=== PATIENT | female | born 1990 | race African-American/Black ===

== ENCOUNTER 2023-05-25 06:34 | Emergency (ER) | payer SELFPAY ==
[~2023-05-25] VITALS: Ht 170.2 cm; Wt 72.7 kg
[2023-05-25] MEDS ORDERED: SODIUM CHLORIDE 0.9% 1,000 ML IV ONE ×2 (07:15→09:15)
[2023-05-25 08:39] LABS: AMPHET/METH SCREEN,URINE POSITIVE (NEGATIVE); BARBITURATE SCREEN, URINE NEGATIVE (NEGATIVE); BENZODIAZEPINES SCREEN,URINE NEGATIVE (NEGATIVE); CANNABINOID SCREEN,URINE NEGATIVE (NEGATIVE); COCAINE SCREEN,URINE POSITIVE (NEGATIVE); METHADONE SCREEN, URINE NEGATIVE (NEGATIVE); OPIATE SCREEN,URINE NEGATIVE (NEGATIVE); PHENCYCLIDINE SCREEN,URINE NEGATIVE (NEGATIVE)
[2023-05-25 08:55] VITALS: BP 127/95; PULSE 110; RESP 16; TEMP 98.3
== END 2023-05-25 10:59 | disposition left against medical advice (07) ==
LOC: EDBD 06:35 → EMS 06:35
DX: R41.82 Altered mental status, unspecified (principal); F17.210 Nicotine dependence, cigarettes, uncomplicated
CPT/HCPCS: 99283; 96360; 36415; 80307; J7030; G0480

== ENCOUNTER 2023-11-26 22:20 | Emergency (ER) | payer SELFPAY ==
[2023-11-26] MEDS: DiphenhydrAMINE HCL 50 MG/ML VIAL IM ONE (23:12)
[2023-11-26] MEDS: HALOPERIDOL LACTATE 5 MG/ML VIAL IM ONE (23:13)
[2023-11-27 00:15] LABS: BASOPHILS % (AUTO) 0.7 % (0.0-2.0); EOSINOPHILS % (AUTO) 0.6 % (1.0-6.0); HEMATOCRIT 38.7 % (36-46); HEMOGLOBIN 13.1 g/dL (12.0-16.0); MEAN CORPUSCULAR HEMOGLOBIN 36.4 pg (26.0-34.0); MEAN CORPUSCULAR HGB CONC 33.9 G/dL (31.0-37.0); MEAN CORPUSCULAR VOLUME 107 fL (80-100); MONOCYTES # (AUTO) 0.4 K/uL (0.1-1.0); MONOCYTES % (AUTO) 8.8 % (2.0-9.0); NEUTROPHILS % (AUTO) 67.9 % (40.0-70.0); PLATELET COUNT (AUTO) 180 K/uL (150-450); RED CELL DISTRIBUTION WIDTH 13.9 % (11.5-14.5); WHITE BLOOD COUNT (AUTO) 4.5 K/uL (4.5-11.0)
[2023-11-27 00:17] LABS: ANION GAP 15 mmol/L (8-16); CARBON DIOXIDE 22 mmol/L (22-29); CHLORIDE 103 mmol/L (98-107); CREATININE 0.65 mg/dL (0.60-1.30); GLOMERULAR FILTR. RATE CALC > 60 mL/min (>60); GLUCOSE,RANDOM 89 mg/dL (70-110); POTASSIUM 3.2 mmol/L (3.5-5.1); RBC MORPHOLOGY COMMENT ABNORMAL RBC MORPH; SODIUM SERUM 140 mmol/L (136-145); UREA NITROGEN, BLOOD 8 mg/dL (7-18)
[2023-11-27 00:22] LABS: ALANINE AMINOTRANSFERASE 63 U/L (12-78); ALKALINE PHOSPHATASE 86 U/L (46-116); ASPARTATE AMINOTRANSFERASE 163 U/L (15-37); BILIRUBIN,TOTAL 0.4 mg/dL (0.1-1.0); TOTAL PROTEIN, SERUM 6.3 g/dL (6.4-8.2)
[2023-11-27 00:26] LABS: ALCOHOL, BLOOD (SERUM) 334 mg/dL (0-10)
[2023-11-27] MEDS: POTASSIUM CHLORIDE 20 MEQ ER TABLET PO ONE (03:38)
[2023-11-27 03:56] VITALS: BP 119/67; PULSE 75; RESP 12; TEMP 97.9
== END 2023-11-27 06:20 ==
LOC: EMS 22:28
DX: F10.129 Alcohol abuse with intoxication, unspecified (principal); F15.10 Other stimulant abuse, uncomplicated; F14.10 Cocaine abuse, uncomplicated; K70.30 Alcoholic cirrhosis of liver without ascites; E87.6 Hypokalemia
CPT/HCPCS: 99291; 80053; 84703; 85025; 96372; G0480; J1200; J1630; 51701

== ENCOUNTER 2024-01-29 05:08 | Emergency (ER) | payer MEDICAID ==
[~2024-01-29] VITALS: Ht 167.6 cm; Wt 70.5 kg
[2024-01-29 05:21] VITALS: BP 132/77; PULSE 94
[2024-01-29] MEDS ORDERED: SODIUM CHLORIDE 0.9% 1,000 ML ONE (05:37)
[2024-01-29 05:40] VITALS: RESP 16; TEMP 98.3
[2024-01-29] MEDS: SODIUM CHLORIDE 0.9% 1,000 ML IV ONE (05:52)
[2024-01-29 06:16] LABS: ANION GAP 12 mmol/L (8-16); CALCIUM, TOTAL 8.5 mg/dL (8.8-10.5); CARBON DIOXIDE 24 mmol/L (22-29); CHLORIDE 107 mmol/L (98-107); CREATININE 0.56 mg/dL (0.60-1.30); GLOMERULAR FILTR. RATE CALC > 60 mL/min (>60); GLUCOSE,RANDOM 116 mg/dL (70-110); POTASSIUM 3.6 mmol/L (3.5-5.1); SODIUM SERUM 143 mmol/L (136-145); UREA NITROGEN, BLOOD 10 mg/dL (7-18)
[2024-01-29 06:20] LABS: ALCOHOL, BLOOD (SERUM) 374 mg/dL (0-10)
[2024-01-29 06:26] LABS: ALANINE AMINOTRANSFERASE 71 U/L (12-78); ALBUMIN 3.1 g/dL (3.4-5.0); ALKALINE PHOSPHATASE 92 U/L (46-116); ASPARTATE AMINOTRANSFERASE 144 U/L (15-37); BILIRUBIN,TOTAL 0.4 mg/dL (0.1-1.0); TOTAL PROTEIN, SERUM 7.1 g/dL (6.4-8.2)
[2024-01-29 06:29] LABS: AMPHET/METH SCREEN,URINE NEGATIVE (NEGATIVE); BARBITURATE SCREEN, URINE NEGATIVE (NEGATIVE); BENZODIAZEPINES SCREEN,URINE NEGATIVE (NEGATIVE); CANNABINOID SCREEN,URINE NEGATIVE (NEGATIVE); COCAINE SCREEN,URINE NEGATIVE (NEGATIVE); METHADONE SCREEN, URINE NEGATIVE (NEGATIVE); OPIATE SCREEN,URINE NEGATIVE (NEGATIVE); PHENCYCLIDINE SCREEN,URINE NEGATIVE (NEGATIVE)
[2024-01-29 06:50] LABS: BASOPHILS % (AUTO) 0.5 % (0.0-2.0); EOSINOPHILS % (AUTO) 1.9 % (1.0-6.0); HEMATOCRIT 40.3 % (36-46); HEMOGLOBIN 13.6 g/dL (12.0-16.0); LYMPHOCYTES # (AUTO) 1.7 K/uL (1.0-4.8); MEAN CORPUSCULAR HEMOGLOBIN 36.9 pg (26.0-34.0); MEAN CORPUSCULAR HGB CONC 33.7 G/dL (31.0-37.0); MEAN CORPUSCULAR VOLUME 110 fL (80-100); MONOCYTES # (AUTO) 0.9 K/uL (0.1-1.0); MONOCYTES % (AUTO) 11.5 % (2.0-9.0); NEUTROPHILS # (AUTO) 4.9 K/uL (1.8-7.7); NEUTROPHILS % (AUTO) 64.1 % (40.0-70.0); PLATELET COUNT (AUTO) 216 K/uL (150-450); RED BLOOD CELL COUNT(AUTO) 3.68 MIL/uL (4.00-5.20); RED CELL DISTRIBUTION WIDTH 14.5 % (11.5-14.5); WHITE BLOOD COUNT (AUTO) 7.7 K/uL (4.5-11.0)
[2024-01-29 07:18] LABS: ALCOHOL, URINE DRUG SCREEN POSITIVE (NEGATIVE)
== END 2024-01-29 10:05 | disposition home or self-care (01) ==
LOC: EMS 05:09
DX: F10.229 Alcohol dependence with intoxication, unspecified (principal); F15.90 Other stimulant use, unspecified, uncomplicated; Y90.9 Presence of alcohol in blood, level not specified
CPT/HCPCS: 99284; 70450; 96360; 80053; 84703; 85025; 36415; 70486; 72125; 80307; G0480; J7030

== ENCOUNTER 2024-05-16 06:01 | Emergency (ER) | payer MEDICAID ==
[~2024-05-16] VITALS: Ht 170.2 cm; Wt 65.0 kg
[2024-05-16 06:10] VITALS: BP 143/89; PULSE 98; RESP 19; TEMP 97.7
[2024-05-16 07:36] LABS: BASOPHILS % (AUTO) 0.3 % (0.0-2.0); EOSINOPHILS % (AUTO) 1.2 % (1.0-6.0); HEMATOCRIT 38.8 % (36-46); HEMOGLOBIN 12.9 g/dL (12.0-16.0); LYMPHOCYTES # (AUTO) 0.8 K/uL (1.0-4.8); MEAN CORPUSCULAR HEMOGLOBIN 34.1 pg (26.0-34.0); MEAN CORPUSCULAR HGB CONC 33.2 G/dL (31.0-37.0); MEAN CORPUSCULAR VOLUME 103 fL (80-100); MONOCYTES # (AUTO) 0.4 K/uL (0.1-1.0); MONOCYTES % (AUTO) 5.7 % (2.0-9.0); NEUTROPHILS # (AUTO) 5.7 K/uL (1.8-7.7); NEUTROPHILS % (AUTO) 81.8 % (40.0-70.0); PLATELET COUNT (AUTO) 254 K/uL (150-450); RED BLOOD CELL COUNT(AUTO) 3.78 MIL/uL (4.00-5.20); RED CELL DISTRIBUTION WIDTH 16.6 % (11.5-14.5); WHITE BLOOD COUNT (AUTO) 6.9 K/uL (4.5-11.0)
[2024-05-16] MEDS: PERTUSS(ACELL),DIPH,TET/PF 0.5 ML SYRINGE [ADULT] IM. ONE (07:40)
[2024-05-16 07:47] LABS: ANION GAP 14 mmol/L (8-16); CALCIUM, TOTAL 7.8 mg/dL (8.8-10.5); CARBON DIOXIDE 24 mmol/L (22-29); CHLORIDE 102 mmol/L (98-107); CREATININE 0.65 mg/dL (0.60-1.30); GLOMERULAR FILTR. RATE CALC > 60 mL/min (>60); GLUCOSE,RANDOM 78 mg/dL (70-110); POTASSIUM 3.3 mmol/L (3.5-5.1); SODIUM SERUM 140 mmol/L (136-145); UREA NITROGEN, BLOOD 9 mg/dL (7-18)
[2024-05-16] MEDS: BACITRACIN 0.9 GM PACKET OINTMENT TP ONE (07:49)
[2024-05-16 07:57] LABS: ALCOHOL, BLOOD (SERUM) 248 mg/dL (0-10)
[2024-05-16 07:59] LABS: RBC MORPHOLOGY COMMENT ABNORMAL RBC MORPH
[2024-05-16] MEDS: LIDOCAINE/PF 1% 2 ML VIAL IM ONE (08:39)
[2024-05-16] MEDS: CefTRIAXone SODIUM 1 GM/VIAL IM ONE (08:39)
[2024-05-16] MEDS: AZITHROMYCIN 500 MG TABLET PO ONE (08:45)
[2024-05-16] MEDS: POTASSIUM CHLORIDE 20 MEQ ER TABLET PO ONE (08:45)
[2024-05-16] MEDS ORDERED: DOXY-354 PO (09:27)
== END 2024-05-16 10:30 | disposition home or self-care (01) ==
LOC: EMS 06:01
DX: S00.93XA Contusion of unspecified part of head, initial encounter (principal); S40.211A Abrasion of right shoulder, initial encounter; S80.211A Abrasion, right knee, initial encounter; F10.229 Alcohol dependence with intoxication, unspecified; E87.6 Hypokalemia; W22.8XXA Striking against or struck by other objects, initial encounter; Y93.89 Activity, other specified; Y92.89 Other specified places as the place of occurrence of the external cause; Y99.8 Other external cause status; Y90.9 Presence of alcohol in blood, level not specified
CPT/HCPCS: 99285; 70450; 80048; 84703; 85025; 36415; 70486; 90715; 90471; 96372; G0480; J0456; J0696; J3490